=== PATIENT | female | born 1975 | race Caucasian/White ===

== ENCOUNTER 2019-12-20 19:25 | Emergency (ER) | payer OTHER ==
[~2019-12-20] VITALS: Ht 157.5 cm; Wt 72.6 kg
[~2019-12-20 19:25] MED LIST: ACET500 PO; ALBU90OI INH; ALPR.25 PO; AMOX875 PO; AZIT250 PO; BUSP5 PO; CODGUAEL PO; ESTR2 PO; Flomax0.4 MG PO; HYDACE5 PO; HYDMOR2 PO; IBUP800 PO; LEVFLO500 PO; LORA.5 PO; LORA1 PO; METO5A PO; NEBI5 PO; OMEP10ER PO; ONDA4 PO; ONDA4ODT MM; OXYACE5T PO; OXYACE7.5T PO; PHENA200 PO; PROG100; PROM25 PO; PSEU120ER PO; Percocet 5-3251 EACH PO; Pyridium100 MG PO; RXHYDMOR2 PO; RXONDA4ODT MM; RXOXYACE PO; Robaxin500 MG PO; SERT25 PO; SULTRIDS PO; Zofran Odt4 MG SL
== END 2019-12-20 21:00 | disposition home or self-care (01) ==
LOC: ER 19:25
DX: I80.01 Phlebitis and thrombophlebitis of superficial vessels of right lower extremity (principal); Z88.5 Allergy status to narcotic agent; Z88.8 Allergy status to other drugs, medicaments and biological substances; Z79.899 Other long term (current) drug therapy
CPT/HCPCS: 99282

== ENCOUNTER → 2020-07-16 | Outpatient (CLI) | payer OTHER ==
[~2020-07-16] MED LIST changes: +DOK100 M2 PO; +NAPROXEN500 MG PO; +OXYC5 PO
[2020-07-16 18:31] LABS: Hematocrit 39.3 % (33.0-51.0); Hemoglobin 12.9 g/dL (11.5-16.0); Mean Corpuscular HGB 30.6 pg (26.0-34.0); Mean Corpuscular HGB Conc 32.8 g/dL (31.5-36.5); Mean Corpuscular Volume 93 fL (80-100); Platelet Count 271 K/mm3 (150-400); RDW Coefficient Variation 11.6 % (11.7-14.2); RDW Standard Deviation 39.2 fL (35.1-46.3); Red Blood Cell Count 4.22 M/mm3 (3.80-5.20); White Blood Cell Count 6.88 K/mm3 (4.00-11.30)
[2020-07-16 18:38] LABS: Mean Platelet Volume 13.7 fL (9.1-12.4)
[2020-07-16 18:54] LABS: Alanine Aminotransfer (ALT/SGP 42 U/L (12-78); Albumin, Blood 3.8 g/dL (3.4-5.0); Albumin/Globulin Ratio 1.2 (0.8-1.8); Alk Phos 175 U/L (50-136); Anion Gap 3 mmol/L (6-16); Aspartate Aminotrans (AST/SGOT 24 U/L (12-37); Bilirubin, Total 0.4 mg/dL (0.1-1.0); Blood Urea Nitrogen 12 mg/dL (8-24); Bun/Creatinine Ratio 21.2 (12.0-20.0); CO2, Blood 31 mmol/L (21-32); Calcium, Blood 8.9 mg/dL (8.5-10.1); Chloride, Blood 107 mmol/L (98-108); Creatinine, Blood 0.57 mg/dL (0.40-1.00); Globulin, Blood 3.2 g/dL (2.2-4.0); Glomerular Filtration Rate >60 (60-); Glucose, Blood 85 mg/dL (70-99); Potassium, Blood 3.7 mmol/L (3.5-5.5); Sodium, Blood 141 mmol/L (136-145)
[2020-07-17 08:10] LABS: ESTRADIOL 43.6 pg/mL (.)
[2020-07-17 19:10] LABS: TESTOSTERONE, FREE, DIRECT 1.5 pg/mL (0.0-4.2)
== END | disposition home or self-care (01) ==
LOC: PLD 15:58 → LAB SHORT 15:58
PROVIDERS: Family Medicine
DX: N95.1 Menopausal and female climacteric states (principal); E16.2 Hypoglycemia, unspecified; R53.83 Other fatigue
CPT/HCPCS: 80053; 82670; 82679; 84402; 84443; 85027

== ENCOUNTER 2020-07-28 16:47 | Emergency (ER) | payer OTHER ==
[~2020-07-28] VITALS: Ht 160 cm; Wt 65.3 kg
[~2020-07-28 16:47] MED LIST changes: -DOK100 M2 PO; -NAPROXEN500 MG PO; -OXYC5 PO
[2020-07-28 17:27] LABS: BASOPHILS ABSOLUTE AUTO 0.05 K/mm3 (0.00-0.23); BASOPHILS PERCENT AUTO 1 % (0-2); EOSINOPHILS ABSOLUTE AUTO 0.07 K/mm3 (0.00-0.68); EOSINOPHILS PERCENT AUTO 1 % (0-6); Hematocrit 37.7 % (33.0-51.0); Hemoglobin 12.4 g/dL (11.5-16.0); IMMATURE GRAN ABSOLUTE AUTO 0.04 K/mm3 (0.00-0.10); IMMATURE GRAN PERCENT AUTO 1 % (0-1); LYMPHOCYTES ABSOLUTE AUTO 2.53 K/mm3 (0.84-5.20); LYMPHOCYTES PERCENT AUTO 30 % (21-46); MONOCYTES ABSOLUTE AUTO 0.71 K/mm3 (0.16-1.47); MONOCYTES PERCENT AUTO 8 % (4-13); Mean Corpuscular HGB 30.2 pg (26.0-34.0); Mean Corpuscular HGB Conc 32.9 g/dL (31.5-36.5); Mean Corpuscular Volume 92 fL (80-100); NEUTROPHILS ABSOLUTE AUTO 5.09 K/mm3 (1.96-9.15); NEUTROPHILS PERCENT AUTO 60 % (41-73); NRBC ABSOLUTE 0.02 K/mm3 (0.00-0.02); NRBC Auto 0.2 /100 WBC (0.0-0.2); RDW Coefficient Variation 11.6 % (11.7-14.2); RDW Standard Deviation 39.4 fL (35.1-46.3); Red Blood Cell Count 4.11 M/mm3 (3.80-5.20); White Blood Cell Count 8.49 K/mm3 (4.00-11.30)
[2020-07-28 17:33] LABS: Alanine Aminotransfer (ALT/SGP 57 U/L (12-78); Albumin, Blood 3.7 g/dL (3.4-5.0); Albumin/Globulin Ratio 1.2 (0.8-1.8); Alk Phos 191 U/L (50-136); Anion Gap 3 mmol/L (6-16); Aspartate Aminotrans (AST/SGOT 42 U/L (12-37); Bilirubin, Total 0.4 mg/dL (0.1-1.0); Blood Urea Nitrogen 8 mg/dL (8-24); Bun/Creatinine Ratio 13.6 (12.0-20.0); CO2, Blood 29 mmol/L (21-32); Calcium, Blood 8.7 mg/dL (8.5-10.1); Chloride, Blood 110 mmol/L (98-108); Creatinine, Blood 0.59 mg/dL (0.40-1.00); Globulin, Blood 3.2 g/dL (2.2-4.0); Glomerular Filtration Rate >60 (60-); Glucose, Blood 79 mg/dL (70-99); Potassium, Blood 3.7 mmol/L (3.5-5.5); Sodium, Blood 142 mmol/L (136-145); Total Protein, Blood 6.9 g/dL (6.4-8.2)
[2020-07-28 17:52] LABS: Mean Platelet Volume 12.7 fL (9.1-12.4); Platelet Count 229 K/mm3 (150-400)
[2020-07-28] MEDS ORDERED: OXYC5 PO (20:24)
[2020-07-28] MEDS ORDERED: DOK100 M2 PO (20:25)
[2020-07-28] MEDS ORDERED: NAPROXEN500 MG PO (20:25)
== END 2020-07-28 21:44 | disposition home or self-care (01) ==
LOC: ER 16:47
PROVIDERS: Physician Assistant
DX: H53.8 Other visual disturbances (principal); H57.04 Mydriasis; Z88.5 Allergy status to narcotic agent; Z88.6 Allergy status to analgesic agent; Z79.899 Other long term (current) drug therapy; Z98.890 Other specified postprocedural states; Z88.8 Allergy status to other drugs, medicaments and biological substances
CPT/HCPCS: 36415; 70450; 80053; 85025; 99284-25; A9270

== ENCOUNTER 2020-07-29 15:43 | Emergency (ER) | payer OTHER ==
[~2020-07-29] VITALS: Ht 160 cm; Wt 65.3 kg
[~2020-07-29 15:43] MED LIST changes: +DOK100 M2 PO; +NAPROXEN500 MG PO; +OXYC5 PO
[2020-07-29 16:31] LABS: BASOPHILS ABSOLUTE AUTO 0.07 K/mm3 (0.00-0.23); BASOPHILS PERCENT AUTO 1 % (0-2); EOSINOPHILS ABSOLUTE AUTO 0.04 K/mm3 (0.00-0.68); EOSINOPHILS PERCENT AUTO 1 % (0-6); Hematocrit 38.9 % (33.0-51.0); Hemoglobin 12.8 g/dL (11.5-16.0); IMMATURE GRAN ABSOLUTE AUTO 0.02 K/mm3 (0.00-0.10); IMMATURE GRAN PERCENT AUTO 0 % (0-1); LYMPHOCYTES ABSOLUTE AUTO 2.37 K/mm3 (0.84-5.20); LYMPHOCYTES PERCENT AUTO 30 % (21-46); MONOCYTES ABSOLUTE AUTO 0.52 K/mm3 (0.16-1.47); MONOCYTES PERCENT AUTO 7 % (4-13); Mean Corpuscular HGB 30.3 pg (26.0-34.0); Mean Corpuscular HGB Conc 32.9 g/dL (31.5-36.5); Mean Corpuscular Volume 92 fL (80-100); Mean Platelet Volume 12.7 fL (9.1-12.4); NEUTROPHILS PERCENT AUTO 62 % (41-73); Platelet Count 269 K/mm3 (150-400); RDW Coefficient Variation 11.5 % (11.7-14.2); RDW Standard Deviation 39.1 fL (35.1-46.3); Red Blood Cell Count 4.22 M/mm3 (3.80-5.20); White Blood Cell Count 7.92 K/mm3 (4.00-11.30)
[2020-07-29 16:52] LABS: Alanine Aminotransfer (ALT/SGP 51 U/L (12-78); Albumin, Blood 3.6 g/dL (3.4-5.0); Albumin/Globulin Ratio 1.1 (0.8-1.8); Alk Phos 194 U/L (50-136); Anion Gap 5 mmol/L (6-16); Aspartate Aminotrans (AST/SGOT 32 U/L (12-37); Bilirubin, Total 0.6 mg/dL (0.1-1.0); Blood Urea Nitrogen 8 mg/dL (8-24); Bun/Creatinine Ratio 15.7 (12.0-20.0); CO2, Blood 26 mmol/L (21-32); Calcium, Blood 9.3 mg/dL (8.5-10.1); Chloride, Blood 108 mmol/L (98-108); Creatinine, Blood 0.51 mg/dL (0.40-1.00); Globulin, Blood 3.4 g/dL (2.2-4.0); Glomerular Filtration Rate >60 (60-); Glucose, Blood 90 mg/dL (70-99); Potassium, Blood 3.7 mmol/L (3.5-5.5); Sodium, Blood 139 mmol/L (136-145)
[2020-07-29 16:58] LABS: Troponin I <0.015 ng/mL (0.000-0.040)
== END 2020-07-29 22:03 | disposition home or self-care (01) ==
LOC: ER 15:43
PROVIDERS: Emergency Medicine; Physician Assistant
DX: R07.9 Chest pain, unspecified (principal); R51.9 Headache, unspecified; G56.12 Other lesions of median nerve, left upper limb; E78.5 Hyperlipidemia, unspecified; Z88.5 Allergy status to narcotic agent; Z79.899 Other long term (current) drug therapy
CPT/HCPCS: 36415; 71046; 71260; 80053; 83605; 83690; 84484; 85025; 93005; 93010; 96374-59; 96375-59; 99284-25; A9270; J1885; J7120; Q9967

== ENCOUNTER → 2021-06-19 | Outpatient (CLI) | payer OTHER | END | disposition home or self-care (01) | LOC: LAB SHORT 15:51 | DX: N39.0 Urinary tract infection, site not specified (principal) | CPT/HCPCS: 87077; 87086; 87186 ==